=== PATIENT | male | born 1985 | race Caucasian/White ===

== ENCOUNTER → 2017-03-19 | Outpatient (CLI) | payer BC ==
[~2017-03-19] MED LIST: ERYTHROMYCIN O3.5 GM OD; MOTRIN600 MG PO; NO MEDICATIONS; VICODIN 5/1 TAB 5/50 PO; ZOFRAN8 MG PO
--- NOTE | ~2017-03-19 | MR113 ---
[facility] A Service of [facility] & [facility] RADIOLOGY TEXT RESULTS PATIENT: DERICK GONSALVES LOCATION: [facility] : [birth year] UNIT #: [id number] AGE: [address]: VIDYA ANDERSEN MD SEX: M ORDER DR: [id number] [address] [id number] MR#: [id number] Acc #: [id number] NAME: DERICK GONSALVES : 1985 SEX: M STUDY DATE/TIME: 03/19/2017 11:49 UNIT: [facility] ROOM: STUDY DESCRIPTION: MR Lumbar Wo Contrast Attending Physician: Abram Andersen M.D. Referring Physician: Abram Andersen M.D. Ordering Physician: Abram Andersen M.D. Primary Care Physician: Abram Andersen M.D. MRI CENTER REPORT This report is preliminary unless electronic signature is present. Lumbar spine MRI, without. HISTORY Low-back pain. Increasing low back pain, left lower extremity radiculopathy for 6 months, worse in the past 6 weeks with ataxia. No known injury or surgery. COMMENT MRI of the lumbar spine performed without contrast using routine 1.5T imaging technique. Plain film comparison is from 02/07/17. There is about 5-6 mm of degenerative retrolisthesis of L5 on S1 secondary to loss of disc height. The 5-1 disc is desiccated with mild posterior loss of intervertebral disc height. The conus medullaris terminates at L1-2 and is normal. Bone marrow signal intensity is unremarkable. At L1-2, there is bilateral facet hypertrophy, but no canal or foraminal impingement. At L2-3, mild facet hypertrophy, but no canal or foraminal impingement. At L3-4, mild bilateral facet degenerative change, mild ligamentum flavum thickening, minor posterior disc bulging. No canal stenosis. Only mild inferior foraminal narrowing. At L4-5, mild facet degenerative change on the left with a minor posterior disc bulge and effacement of the anterior thecal sac but no central canal stenosis. Mild bilateral inferior foraminal narrowing. At L5-S1, there is mild bilateral facet degenerative change. There is a large disc extrusion left paramedian in location extending caudad from the disc remaining contiguous with it. A small component of the extrusion extends to the right of midline. It results in particular mass effect on STS. [facility] A Service of [facility] RADIOLOGY TEXT RESULTS PATIENT: DERICK GONSALVES LOCATION: [facility] : [birth year] UNIT #: [id number] AGE: [address]: VIDYA ANDERSEN MD SEX: M ORDER DR: the left lateral recess expected location left S1 root, and there is mild associated canal stenosis. There is also loss of disc height and [id number] foraminal narrowing bilaterally. There is milder mass effect on the right lateral recess expected location of the right S1 root. The extrusion measures about 1.5 cm SI dimension, 1.4 cm ML dimension, 0.7 cm AP dimension. IMPRESSION 1. There is a large left paramedian disc extrusion at the L5-S1 level extending caudad from the disc remaining contiguous with it. It lies posterior to the majority of the S1 vertebral body and results in mild canal stenosis and results in severe mass effect on left lateral recess expected location left S1 root, milder mass effect on the right lateral recess expected location right S1 root. Please refer to the [id number] description of findings above and correlate with the patient's symptoms. Dictated by... Karen Person M.D. THIS IS AN ELECTRONICALLY VERIFIED REPORT Karen Person M.D. at 03/20/2017 5:41 PM MITCHELL/nieves TD: 03/20/2017 16:18 JOB #: [id number] MRI CENTER REPORT Page 1 of 1
== END | disposition home or self-care (01) ==
LOC: SMRI 11:21
DX: M54.16 Radiculopathy, lumbar region (principal); M51.27 Other intervertebral disc displacement, lumbosacral region; M48.06 Spinal stenosis, lumbar region
CPT/HCPCS: 72148